=== PATIENT | female | born 1935 | race Two or more races ===

== ENCOUNTER 2022-02-06 17:21 | Emergency (ER) | payer OTHER ==
[~2022-02-06] VITALS: Ht 167.6 cm; Wt 81.6 kg
--- NOTE | 2022-02-06 17:21 | NUR ---
Patient is AOx3 but unable to recall exact dosages of her home medications, pending family's arrival for information.
[2022-02-06] MEDS ORDERED: METOPROLOL (17:41)
[2022-02-06] MEDS ORDERED: METFORMIN (17:41)
[2022-02-06] MEDS ORDERED: INSULIN (17:41)
[2022-02-06 17:58] LABS: CREATININE 1.1 mg/dL (0.6-1.3); POTASSIUM 3.4 mmol/L (3.5-5.1)
[2022-02-06 18:03] LABS: HEMATOCRIT 33.6 % (31.2-41.9); MEAN CORPUSCULAR HEMOGLOBIN 27.9 uug (24.7-32.8); MEAN CORPUSCULAR VOLUME 85.1 fL (75.5-95.3); PLATELET COUNT (AUTO) 223 K/uL (179-408)
--- NOTE | 2022-02-06 18:04 | NUR ---
Nursing cleaning staff supervisor Danette, ER registration staff Ellie and 3rd floor studio operations engineer in charge staff Joya notified re: "plan to admit"
--- NOTE | 2022-02-06 18:18 | NUR ---
16FR urinary catheter inserted per MD order. tolerated, draining clear yellow urine.
--- NOTE | 2022-02-06 19:15 | NUR ---
For possible admission vs transfer to another acute hospital, pending insurance authorization, endorsed to nurse Bansal
--- NOTE | 2022-02-06 19:16 | NUR ---
Patient's daughter at bedside
[2022-02-06] MEDS ORDERED: ONDANSETRON 4 MG/2 ML VIAL IV ONE (19:30)
[2022-02-06] MEDS ORDERED: HYDROMORPHONE 1 MG/1 ML DISP.SYRIN IV ONE (19:30)
[2022-02-06] MEDS ORDERED: HYDROMORPHONE 1 MG/1 ML DISP.SYRIN ONE (19:31)
[2022-02-06] MEDS ORDERED: ONDANSETRON 4 MG/2 ML VIAL ONE (19:31)
--- NOTE | 2022-02-06 20:20 | NUR ---
Patient c/o nausea. Dr Pederson made aware. Verbally ordered compazine 10mg
[2022-02-06] MEDS ORDERED: PROCHLORPERAZINE EDISYLATE 10 MG/2 ML VIAL ONE (20:24)
[2022-02-06] MEDS ORDERED: PROCHLORPERAZINE EDISYLATE 10 MG/2 ML VIAL IV ONE (20:30)
[2022-02-06] MEDS ORDERED: KETOROLAC TROMETHAMINE 15 MG INJ IVP ONE (20:30)
[2022-02-06] MEDS ORDERED: POTASSIUM BICARBONATE/CIT AC 25 MEQ TABLET.EFF PO ONE (20:45)
[2022-02-06] MEDS ORDERED: KETOROLAC TROMETHAMINE 15 MG INJ ONE (21:21)
[2022-02-06] MEDS ORDERED: POTASSIUM BICARBONATE/CIT AC 25 MEQ TABLET.EFF ONE (21:21)
--- NOTE | 2022-02-06 23:02 | NUR ---
report given to Chavo SMITH. Patient will be admitted to [facility] room [address]ua. Ambulance ETA 0300
--- NOTE | 2022-02-07 01:34 | NUR ---
Patient Tranfers to outside Facility via [facility] unit [id number] Physician: Dr Lua Location: [facility]
== END 2022-02-07 01:35 | disposition short-term general hospital (02) ==
LOC: ER 17:21
DX: S72.141A Displaced intertrochanteric fracture of right femur, initial encounter for closed fracture (principal); W18.30XA Fall on same level, unspecified, initial encounter; Y92.019 Unspecified place in single-family (private) house as the place of occurrence of the external cause; E11.9 Type 2 diabetes mellitus without complications; Z79.4 Long term (current) use of insulin; Z88.2 Allergy status to sulfonamides; Z79.84 Long term (current) use of oral hypoglycemic drugs; E78.00 Pure hypercholesterolemia, unspecified; E87.6 Hypokalemia; Z20.822 Contact with and (suspected) exposure to COVID-19
CPT/HCPCS: 99285; 71045; 87426; 80048; 85025; 85730; 36415; 73502; 51702; 93005; 72170; 96374; 96375; J1885; J2405; J0780; J1170; A4663